=== PATIENT | male | born 1950 | race Two or more races ===

== ENCOUNTER → 2017-06-20 | Outpatient (CLI) | payer OTHER ==
[~2017-06-20] MED LIST: AMBIEN10 MG; ASPIR 8181 MG; KETO10TA2 PO; LOSARTAN-HCTZ1 EAC2; MELATONIN5 M1; METOPROLOL SUCC25 MG; SIMVASTATIN40 MG; TAMS0.4C PO; VALERIAN ROOT100 MG
== END | disposition home or self-care (01) ==
LOC: PPH VACUNA 12:29
DX: Z23 Encounter for immunization (principal)
CPT/HCPCS: 90674; G0008